=== PATIENT | female | born 1960 | race Caucasian/White ===

== ENCOUNTER 2017-01-01 16:15 | Inpatient (IN) | payer BC ==
[~2017-01-01] VITALS: Ht 157.5 cm; Wt 90.8 kg
[2017-01-01] MEDS ORDERED: ASPIRIN CHEWABLE 81 MG TABLET. PO ONE (17:00)
[2017-01-01] MEDS ORDERED: NITROGLYCERIN SUBLINGUAL 0.4 MG BOTTLE OF 25. SL PRN ×2 (17:00→20:30)
[2017-01-01 17:13] LABS: BASO # 0.1 x10^3/uL (0.0-0.2); BASO % 1 % (0-3); EOS % 1 % (0-3); HEMATOCRIT 41.2 % (36.0-47.0); HEMOGLOBIN 14.3 g/dL (12.0-15.5); LYMPH # 2.1 x10^3/uL (1.0-4.8); LYMPH % 25 % (24-48); MEAN CORPUSCULAR HEMOGLOBIN 30 pg (25-35); MEAN CORPUSCULAR HGB CONC 35 g/dL (31-37); MEAN CORPUSCULAR VOLUME 85 fL (79-100); MONO % 7 % (0-9); NEUT % 65 % (31-73); PLATELET COUNT 259 x10^3/uL (140-400); RED BLOOD COUNT 4.85 x10^6/uL (3.50-5.40); RED CELL DISTRIBUTION WIDTH 13.5 % (11.5-14.5); WHITE BLOOD COUNT 8.4 x10^3/uL (4.0-11.0)
[2017-01-01] MEDS: fentaNYL PF VIAL 100 MCG/2 ML VIAL IV PRN ×2 (17:18→18:22)
[2017-01-01 17:21] LABS: BILIRUBIN,URINE NEGATIVE (NEG); GLUCOSE,URINE NEGATIVE (NEG); NITRITE,URINE NEGATIVE (NEG); PH,URINE 5.5; PROTEIN,URINE NEGATIVE (NEG-TRACE); UROBILINOGEN,URINE 0.2 mg/dL (0.2 mg/dL)
[2017-01-01 17:21] LABS: CREATININE 1.1 mg/dL (0.6-1.0); POTASSIUM 3.3 mmol/L (3.5-5.1)
[2017-01-01 17:27] LABS: ALBUMIN 4.1 g/dL (3.4-5.0); DIRECT BILIRUBIN 0.1 mg/dL (0.0-0.2); TOTAL BILIRUBIN 0.5 mg/dL (0.2-1.0); TOTAL PROTEIN 7.9 g/dL (6.4-8.2)
[2017-01-01 17:28] LABS: BARBITURATES NEG (NEG); BENZODIAZEPINES NEG (NEG); CANNABINOIDS NEG (NEG); COCAINE NEG (NEG); METHADONE NEG (NEG); OPIATES NEG (NEG); PHENCYCLIDINE NEG (NEG)
[2017-01-01 17:31] LABS: RBC,URINE 0 /HPF (0-2)
[2017-01-01 17:32] LABS: BACTERIA,URINE FEW /HPF (0-FEW); SQUAMOUS EPITHELIAL CELL,UR FEW /LPF
--- NOTE | 2017-01-01 18:07 | ED.ADGEN ---
Past Medical History Past Medical History: Hypertension, Other Additional Past Medical Histor: RA Past Surgical History: Knee Replacement, Other Additional Past Surgical Histo: uterine ablation Alcohol Use: Occasionally Drug Use: None Adult General Chief Complaint Chief Complaint: CHEST PAIN HPI HPI Patient is a 56 year old woman, history of hypertension, who presents to the emergency department with complaint of back pain, located in her mid upper back , which she states began this morning. Associated with significant fatigue, which patient states is new for her, denies any injuries, any recent travel or surgery, any swelling extremities, history of DVT or PE. Pain has been intermittent, radiates from her back to her chest, is not reproducible with movement or with palpation. States he has had some nausea but no vomiting, states she also experienced tingling in her right arm which is now resolved. Patient states she is similar episode that occurred several years ago, she states at that time she had an extensive workup without a source being identified, although they saw "gallstones". She denies any nausea or vomiting, no belching, no shortness of breath, no focal weakness, numbness or tingling. Denies any inciting factors or changes in activities or medication. Patient states that her last cardiac evaluation was a catheterization that occurred [address] Powell. Her primary care provider is Dr. Uriarte. Review of Systems Review of Systems Constitutional: Denies fever or chills. [] Eyes: Denies change in visual acuity. [] HENT: Denies nasal congestion or sore throat. [] Respiratory: Denies cough or shortness of breath. [] Cardiovascular: Thoracic back pain radiating to the chest, no edema. GI: Denies abdominal pain, nausea, vomiting, bloody stools or diarrhea. [] : Denies dysuria. [] Musculoskeletal: Thoracic back pain radiating to the chest, no joint pain, no injury. Integument: Denies rash. [] Neurologic: Denies headache, focal weakness or sensory changes. [] Endocrine: Denies polyuria or polydipsia. [] Lymphatic: Denies swollen glands. [] Psychiatric: Denies depression or anxiety. [] Current Medications Current Medications Current Medications Medications (Trade) Dose Ordered Sig/Mary Beth Start Time Stop Time Status Last Admin Dose Admin Aspirin (Children'S Aspirin) 324 mg 1X ONCE 01/01/17 17:00 01/01/17 17:01 UNV 01/01/17 17:17 324 MG Fentanyl Citrate (Fentanyl 2ml Vial) 25 mcg PRN Q15MIN PRN 01/01/17 17:00 01/02/17 16:59 UNV 01/01/17 18:22 25 MCG Iohexol (Omnipaque 300 Mg/ml) 60 ml 1X ONCE 01/01/17 19:15 01/01/17 19:16 UNV 01/01/17 19:32 60 ML Nitroglycerin (Nitrostat) 0.4 mg PRN Q5MIN PRN 01/01/17 17:00 01/02/17 16:59 UNV 01/01/17 17:19 0.4 MG Physical Exam Physical Exam Constitutional: Well developed, well nourished, no acute distress, non-toxic appearance. [] HENT: Normocephalic, atraumatic, bilateral external ears normal, oropharynx moist, no oral exudates, nose normal. [] Eyes: PERRLA, EOMI, conjunctiva normal, no discharge. [] Neck: Normal range of motion, no tenderness, supple, no stridor. [] Cardiovascular:Heart rate regular rhythm, no murmur , S1, S2, no rubs or gallops. [] Lungs & Thorax: Bilateral breath sounds clear to auscultation, no wheezing, rhonchi, rales. No chest wall crepitus or tenderness. [] Abdomen: Bowel sounds normal, soft, no tenderness, no rebound, rigidity, no guarding, negative Urbina sign, no masses, no pulsatile masses. [] Skin: Warm, dry, no erythema, no rash. [] Back: No tenderness, unable to reproduce symptoms with palpation, no bony point tenderness or crepitus,, no CVA tenderness. [] Extremities: No tenderness, no cyanosis, no clubbing, ROM intact, no edema. [] Neurologic: Alert and oriented X 3, normal motor function, normal sensory function, no focal deficits noted. [] Psychologic: Affect normal, judgement normal, mood normal. [] Current Patient Data Vital Signs Vital Signs Date Time Temp Pulse Resp B/P (MAP) Pulse Ox O2 Delivery O2 Flow Rate FiO2 01/01/17 19:37 64 18 162/80 (107) Room Air 98.0 01/01/17 18:37 97 01/01/17 16:36 98.1 98.1 Lab Values Laboratory Tests Test 01/01/17 16:30 01/01/17 17:15 White Blood Count 8.4 x10^3/uL (4.0-11.0) Red Blood Count 4.85 x10^6/uL (3.50-5.40) Hemoglobin 14.3 g/dL (12.0-15.5) Hematocrit 41.2 % (36.0-47.0) Mean Corpuscular Volume 85 fL (79-100) Mean Corpuscular Hemoglobin 30 pg (25-35) Mean Corpuscular Hemoglobin Concent 35 g/dL (31-37) Red Cell Distribution Width 13.5 % (11.5-14.5) Platelet Count 259 x10^3/uL (140-400) Neutrophils (%) (Auto) 65 % (31-73) Lymphocytes (%) (Auto) 25 % (24-48) Monocytes (%) (Auto) 7 % (0-9) Eosinophils (%) (Auto) 1 % (0-3) Basophils (%) (Auto) 1 % (0-3) Neutrophils # (Auto) 5.5 x10^3uL (1.8-7.7) Lymphocytes # (Auto) 2.1 x10^3/uL (1.0-4.8) Monocytes # (Auto) 0.6 x10^3/uL (0.0-1.1) Eosinophils # (Auto) 0.1 x10^3/uL (0.0-0.7) Basophils # (Auto) 0.1 x10^3/uL (0.0-0.2) Sodium Level 140 mmol/L (136-145) Potassium Level 3.3 mmol/L (3.5-5.1) L Chloride Level 102 mmol/L (98-107) Carbon Dioxide Level 27 mmol/L (21-32) Anion Gap 11 (6-14) Blood Urea Nitrogen 14 mg/dL (7-20) Creatinine 1.1 mg/dL (0.6-1.0) H Estimated GFR (Cockcroft-Gault) 51.0 Glucose Level 103 mg/dL (70-99) H Calcium Level 9.0 mg/dL (8.5-10.1) Total Bilirubin 0.5 mg/dL (0.2-1.0) Direct Bilirubin 0.1 mg/dL (0.0-0.2) Aspartate Amino Transferase (AST) 24 U/L (15-37) Alanine Aminotransferase (ALT) 38 U/L (14-59) Alkaline Phosphatase 88 U/L (46-116) Troponin I Quantitative < 0.017 ng/mL (0.000-0.055) ZB-Jms-B-Type Natriuretic Peptide 143 pg/mL (0-124) H Total Protein 7.9 g/dL (6.4-8.2) Albumin 4.1 g/dL (3.4-5.0) Lipase 177 U/L (73-393) Urine Collection Type Unknown Urine Color Yellow Urine Clarity Clear Urine pH 5.5 Urine Specific Standard 1.020 Urine Protein Negative mg/dL (NEG-TRACE) Urine Glucose (UA) Negative mg/dL (NEG) Urine Ketones (Stick) Negative mg/dL (NEG) Urine Blood Negative (NEG) Urine Nitrite Negative (NEG) Urine Bilirubin Negative (NEG) Urine Urobilinogen Dipstick 0.2 mg/dL (0.2 mg/dL) Urine Leukocyte Esterase Moderate (NEG) Urine RBC 0 /HPF (0-2) Urine WBC 11-20 /HPF (0-4) Urine Squamous Epithelial Cells Few /LPF Urine Bacteria Few /HPF (0-FEW) Urine Mucus Mod /LPF Urine Opiates Screen Neg (NEG) Urine Methadone Screen Neg (NEG) Urine Barbiturates Neg (NEG) Urine Phencyclidine Screen Neg (NEG) Urine Amphetamine/Methamphetamine Neg (NEG) Urine Benzodiazepines Screen Neg (NEG) Urine Cocaine Screen Neg (NEG) Urine Cannabinoids Screen Neg (NEG) Urine Ethyl Alcohol Neg (NEG) Laboratory Tests 01/01/17 16:30 Laboratory Tests 01/01/17 16:30 EKG EKG EC: Sinus rhythm, heart rate 70 beats/minute, left axis deviation, QTC of 420, TX 126, QR is a 92, contour abnormality is noted in the inferior anterior septal leads, no ST elevations or depressions, abnormal ECG, does not meet STEMI criteria. As interpreted by me. [] Radiology/Procedures Radiology/Procedures Chest x-ray: One view: Patient with normal cardiopulmonary silhouette, no infiltrates, no effusions, pneumothorax, no soft tissue or bony abnormality is identified. As interpreted by me. [] Impressions: [facility] [address] [place], [place] [id number] IMAGING REPORT Signed PATIENT: HOWIE MERRITT ACCOUNT: [id number] : 1960 LOCATION: ER AGE: 56 SEX: F EXAM STATUS: REG ER ORD. PHYSICIAN: LOUISE MAGALLON DO REASON: Back/CP, SOB PROCEDURE: CT ANGIOGRAPHY CHEST EXAM: CT angiography of the chest with intravenous contrast. HISTORY: Back pain. Dissection. TECHNIQUE: Computed tomographic images of the chest were obtained following the administration of 75 cc Omnipaque 300 intravenous contrast according to angiography protocol. Multiplanar reformatting was performed and 3-dimensional maximum intensity projection images were obtained. *One or more of the following individualized dose reduction techniques were utilized for this examination: 1. Automated exposure control. 2. Adjustment of the mA and/or kV according to patient size. 3. Use of iterative reconstruction technique. COMPARISON: None. FINDINGS: There is no aortic aneurysm or dissection. There is a standard aortic arch branching pattern. There is no hemodynamically significant stenosis within the origins of the aortic arch branch vessels. The heart is normal in size. No pathologically enlarged mediastinal or hilar lymph node is seen. There is a small hiatal hernia. There is no pneumothorax or pleural effusion. There is a granuloma within the left lung apex. There is a 2 mm groundglass nodular opacity within the right midlung along the pleural fissure, possibly an intrafissural lymph node. There is hepatic steatosis. There is cholelithiasis. There is renal cortical lobulation, developmental or due to scarring. There is a 5.8 cm left renal cyst. No suspicious osseous lesion is seen. There are few thoracic endplate Schmorl's nodes. IMPRESSION: 1. No evidence of thoracic aortic dissection or alternative acute thoracic finding. 2. Hepatic steatosis. 3. Small hiatal hernia. 4. 2 mm groundglass opacity within the right middle lung along the pleural fissure, likely benign fissural lymph node. No suspicious nodule is seen. Electronically signed by: Ankita Myers MD (01/01/2017 7:46 PM) [place] [id number] DICTATED and SIGNED BY: ANKITA MYERS MD DATE: 01/01/171942 CC: ANA MARIA URIARTE MD; LOUISE MAGALLON DO ~ Course & Med Decision Making Course & Med Decision Making Pertinent Labs and Imaging studies reviewed. (See chart for details) Patient states she did have similar symptoms about a year ago, that time she was told might be "gallstones". At this time, patient has no abdominal pain or abdominal tenderness, symptoms are located in the mid thoracic region, with radiation to the chest, that is not reproducible. Also associated with significant fatigue. Discussed with patient that I have concerns that this could be atypical presentation of a cardiac manifestation, also potentially dysfunction of the great vessels. Patient is agreeable receiving laboratory studies and imaging in the ED, has also received nitroglycerin and fentanyl in the ED with improvement of her symptoms. She remains uncomfortable. Chest x-ray unremarkable, ECG left axis deviation, and other nonspecific findings, no evidence of ischemic pattern. CT of the chest obtained, with no evidence of dissection, aneurysm, or other concerning findings identified. Patient received a full dose of aspirin in the ED, lipase is normal, initial troponin is negative. I did discuss findings with the patient patient, she is agreeable for admission to the hospital for continued evaluation. I did speak with Dr. Uriarte , the patient's primary care provider, patient was accepted to his service as a full admission to the medical telemetry floor, consultation placed for Dr. Powell of cardiology. Bridge orders entered per discussion. Dragon Disclaimer Dragon Disclaimer This electronic medical record was generated, in whole or in part, using a voice recognition dictation system. Departure Impression: Primary Impression: Back pain Additional Impression: Chest pain Disposition: ADMITTED INPATIENT Admitting Physician: Ana Maria Uriarte Condition: IMPROVED Problem Qualifiers LOUISE MAGALLON DO Jan 01, 2017 18:07
[2017-01-01] MEDS ORDERED: CONTRAST GIVEN MC PRN (19:00)
[2017-01-01] MEDS ORDERED: IOHEXOL 300 MG/ML 75 ML VIAL IV ONE (19:15)
--- NOTE | 2017-01-01 19:50 | RAD ---
EXAM: CT angiography of the chest with intravenous contrast. HISTORY: Back pain. Dissection. TECHNIQUE: Computed tomographic images of the chest were obtained following the administration of 75 cc Omnipaque 300 intravenous contrast according to angiography protocol. Multiplanar reformatting was performed and 3-dimensional maximum intensity projection images were obtained. *One or more of the following individualized dose reduction techniques were utilized for this examination: 1. Automated exposure control. 2. Adjustment of the mA and/or kV according to patient size. 3. Use of iterative reconstruction technique. COMPARISON: None. FINDINGS: There is no aortic aneurysm or dissection. There is a standard aortic arch branching pattern. There is no hemodynamically significant stenosis within the origins of the aortic arch branch vessels. The heart is normal in size. No pathologically enlarged mediastinal or hilar lymph node is seen. There is a small hiatal hernia. There is no pneumothorax or pleural effusion. There is a granuloma within the left lung apex. There is a 2 mm groundglass nodular opacity within the right midlung along the pleural fissure, possibly an intrafissural lymph node. There is hepatic steatosis. There is cholelithiasis. There is renal cortical lobulation, developmental or due to scarring. There is a 5.8 cm left renal cyst. No suspicious osseous lesion is seen. There are few thoracic endplate Schmorl's nodes. IMPRESSION: 1. No evidence of thoracic aortic dissection or alternative acute thoracic finding. 2. Hepatic steatosis. 3. Small hiatal hernia. 4. 2 mm groundglass opacity within the right middle lung along the pleural fissure, likely benign fissural lymph node. No suspicious nodule is seen. Electronically signed by: Ankita Mireles MD (01/01/2017 7:46 PM) [place] [id number]
[2017-01-01] MEDS ORDERED: ACETAMINOPHEN 325 MG TABLET. PO PRN (20:30)
[2017-01-01 20:55] VITALS: BP 204/85
[2017-01-01 21:24] VITALS: BP 189/93
[2017-01-01] MEDS: MORPHINE SULFATE 4 MG/ML DISP.SYRIN. IV PRN (21:31)
[2017-01-01] MEDS: ONDANSETRON PF 4 MG/2 ML VIAL. IV PRN (21:34)
[2017-01-01] MEDS ORDERED: LISI10TA2 PO (21:57)
[2017-01-01] MEDS: LISINOPRIL 10 MG TABLET PO SCH (23:06)
[2017-01-01 23:07] VITALS: BP 124/89
--- NOTE | 2017-01-02 01:37 | ACF ---
Admission Forms Criteria CARDIOLOGY GRG Clinical Indications for Admission to Inpatient Care ( [place]/check or initial the applicable condition/criteria) Hospital admission is needed for appropriate care of the patient because of ANY ONE of the following: [ ] I. Hemodynamic instability as indicated by ALL of the following (1)(2)(3) (4)(5)(6)(7)(8)(9)(10) [ ]a) Vital sign abnormality not readily corrected by appropriate treatment with 12-24 hours for ANY ONE: [ ]i) Hypotension that persists despite appropriate treatment (eg, volume repletion) [ ]ii) Tachycardiathat persists despite appropriate tx ( e.g., analgesia, fluids, sedation as indicated [ ]iii) Orthostatic vital sign changes that persists despite appropriate treatment (eg, volume repletion) [ ]b) Vital sign abnormailty that is severe indicated by ANY ONE of the following: [ ]i) Inadequate perfusion indicated by ANY ONE of the following: [ ] 1) Lactic acidosis (> 2 mmol/L) [ ] 2) New abnormal capillary refill (> 3 seconds) [ ] 3) Reduced urine output [ ] 4) New altered mental status [ ] 5) Myocardial Ischemia [ ] 6) Other metabolic acidosis (arterial pH <7.35 ) not otherwise explained. [ ]ii) Mean arterial pressure[A] less than 60 mm Hg [ ]iii) Mean arterial pressure[A] less than 70 mm Hg after 30 minutes of appropriate treatment (eg, fluid resuscitation) [ ]iv) Sustained heart rate greater than 120 beats per minute in adult or child 6 years or older[B] [ ]v) IV inotropic or vasopressor medication required to maintain adequate blood pressure or perfusion [ ] II. Severe heart failure as indicated by ANY ONE of the following(17)(18) [ ]a) Respiratory distress [ ]b) Hypotension [ ]c) Debilitating anasarca refractory to therapy (eg, tissue breakdown with infection)[C](19) [ ]d) Cardiac arrhythmias of immediate concern [ ]e) Myocardial ischemia [ ] III. Cardiac arrhythmias or findings of immediate concern indicated by ANY ONE of the following (21)(22): [ ] a) Heart rhythms that are inherently dangerous or unstable indicated by ANY ONE of the following (23)(24)(25): [ ] i) Resuscitated ventricular fibrillation or cardiac arrest [ ] ii) Ventricular escape rhythm [ ] iii) Sustained ventricular tachycardia (30 seconds or more of ventricular rhythm at greater than 100 beats per minute) [ ] iv) Nonsustained ventricular tachycardia and ANY ONE of the following: [ ] 1) Suspected cardiac ischemia as cause or consequence of ventricular tachycardia [ ] 2) Acute myocarditis [ ] b) Unstable cardiac conduction defects indicated by ANY ONE of the following(25)(26)(27) [ ] i) Type II second-degree atrioventricular block [ ]ii) Third-degree atrioventricular block [ ]iii) New-onset left bundle branch block with suspected myocardial ischemia [ ]c) Any heart rhythm and ANY ONE of the following (23)(24)(28)(29) (30) [ ] i) Continuous long-term ECG monitoring needed (e.g., initiation of drug requiring monitoring for more than 24 hours) [ ] ii) Patient has automatic implanted cardioverter defibrillator that is repeatedly firing, malfunctioning, or in need of immediate adjustment of settings beyond the scope of ambulatory or observation care [ ]d) Heart rhythms of concern due to ANY ONE of the following: [ ] i) Hypotension [ ] ii) Respiratory distress [ ] iii) Association with other significant symptoms (e.g., bradycardia with syncope or ongoing dizziness, supraventricular tachycardia with chest pain (28)(29)(31) [ ] IV. Monitoring for cardiac contusion beyond the scope of observation care needed [A](32)(33)(34) [ ] V. Surgical or device complication (e.g., valve replacement complication , ICD disfunction or pacemaker dysfunction) (49)(50)(51)(52)(53)(54) [ ] . Inpatient palliative care needed. [F](51)(52) Also use Inpatient Palliative Care Criteria [ ] VII. Nonbacterial thrombotic (marantic) endocarditis(43)(44)(55)(56)(57) [ X] VIII. Cardiology condition, symptom, or finding for which emergency and observation care has failed or are not considered appropriate. [ ] IX. Acute valvular disease requiring inpatient as indicated by ANY ONE of the following (40)(41) [ ]a) Acute valvular regurgitation (42) [ ]b) Noninfectious valvulitis (43)(44) [ ]c) Obstructive valve thrombosis (45)(46) [ ]d) Paravalvular leak(47)(48) [ ]e) Other significant valvular disorder remaining after emergency or observation level of care (as appropriate) [ ]X. Pericardial disease requiring inpatient treatment as indicated by ANY ONE of the following (35)(36)(37)(38) [ ]a) Suspected tamponade [ ]b) Hemopericardium [ ]c) Other significant pericardial disorder remaining after emergency or observation level of care (as appropriate)(39) [ ] XI. Cardiac ischemia beyond scope of emergency and observation care. [ ] XII. Cyanotic heart disease requiring inpatient care as indicated by 1 or more of the following(58)(59)(60): [ ]a) Acute onset of hypoxemia [ ]b) Exacerbation [ ] XIII. Hypertension requiring inpatient treatment as indicated by ANYONE of the following(11)(12)(13)(14): [ ]a) Severe hypertension (SBP greater than 180 mm Hg or DBP greater than 110 mm Hg, or greater than the 95th percentile for age, gender, and height in pediatric patients) that cannot be controlled (eg, to SBP less than 160 mm Hg and DBP less than 100 mm Hg) by emergency department or observation care treatment(15) [ ]b) Acute end organ damage secondary to hypertension (SBP greater than 140 mm Hg or DBP greater than 90 mm Hg) as indicated by ANYONE of the following: [ ] i) Hypertensive encephalopathy (eg, Altered mental status)(16) [ ] ii) Cerebral infarction [ ] iii) Intracranial hemorrhage [ ] iv) Myocardial ischemia or infarction [ ] v) Heart failure (eg, pulmonary edema) [ ] vi) Aortic dissection [ ] vii) Increased creatinine (new) with reduction of more than 50% in estimated glomerular filtration rate from baseline [ ] viii) Papilledema [ ] ix) Retinal hemorrhage [ ] x) Microangiopathic hemolytic anemia [ ] xi) Seizure [ ] xii) Other significant finding secondary to hypertension [ ] XIV. Complications of transplanted heart indicated by ANY ONE of the following(61): [ ]a) Acute graft rejection requiring inpatient management (eg, intravenous imunosuppression)(62)(63) [ ]b) Acute graft heart failure indicated by ANY ONE of the following(64): [ ] i) Hemodynamic instability [ ] ii) Cardiac arrhythmias of immediate concern [ ] iii) Pulmonary edema that is very severe (eg, mechanical ventilation needed, imminent or likely, need for 100% oxygen to keep oxygen saturation above 90%) [ ] iv) Pulmonary edema that is persistent as indicated by ALL of the following: [ ] 1) New need for oxygen therapy to keep oxygen saturation above 90 % (or increased FiO2 need from baseline) [ ] 2) Has not improved sufficiently with emergency department or observation care IV diuretics or other heart failure treatments[E]. [ ] iv) Altered mental status that is severe or persistent [ ] iv) Increased creatinine (new on laboratory test) with reduction of more than 50% in estimated glomerular filtration rate from baseline [ ] iv) Progressively (ongoing) rising creatinine (known from past laboratory test) with reduction of more than 25% in estimated glomerular filtration rate from baseline [ ] iv) Acute renal failure [ ] iv) Acute peripheral ischemia (eg, examination shows pulseless, cool, mottled, or cyanotic extremity) [ ] iv) Pulmonary artery catheter monitoring needed [ ] iv) Other sign or symptom of heart failure requiring inpatient treatment (ie, too severe or not responsive to outpatient and observation care treatment) [ ]c) Infection requiring inpatient management (eg, Hemodynamic instability, need for intravenous antimicrobial treatment)(66)(67)(68)(69)(70) [ ]d) Cardiac allograft vasculopathy requiring inpatient management (eg evidence of cardiacischemia)(71) [ ]e) Other complication of transplanted heart (eg, stroke, severe pulmonary hypertension, severe valvular dysfunction) requiring inpatient management(72) The original [employer] [facility] content created by [employer] has been revised. The portions of the content which have been revised are identified through the use of italic text, and [facility] has neither reviewed nor approved the modified material. All other unmodified content is copyright [facility] [employer]. Please see references footnoted in the original [employer] edition 2014 Admission Criteria Met?: Yes TWIN WU Jan 02, 2017 01:37
[2017-01-02 02:50] VITALS: BP 99/60
[2017-01-02] MEDS: MORPHINE SULFATE 4 MG/ML DISP.SYRIN. IV PRN (02:58)
[2017-01-02 05:11] LABS: BASO # 0.1 x10^3/uL (0.0-0.2); BASO % 1 % (0-3); EOS % 3 % (0-3); HEMOGLOBIN 13.3 g/dL (12.0-15.5); LYMPH # 2.3 x10^3/uL (1.0-4.8); LYMPH % 39 % (24-48); MEAN CORPUSCULAR HEMOGLOBIN 29 pg (25-35); MEAN CORPUSCULAR HGB CONC 33 g/dL (31-37); MEAN CORPUSCULAR VOLUME 88 fL (79-100); MONO % 7 % (0-9); NEUT % 50 % (31-73); PLATELET COUNT 228 x10^3/uL (140-400); RED BLOOD COUNT 4.66 x10^6/uL (3.50-5.40); RED CELL DISTRIBUTION WIDTH 13.6 % (11.5-14.5); WHITE BLOOD COUNT 5.9 x10^3/uL (4.0-11.0)
[2017-01-02 05:35] LABS: CALCIUM 8.7 mg/dL (8.5-10.1); CREATININE 1.1 mg/dL (0.6-1.0); POTASSIUM 3.3 mmol/L (3.5-5.1)
--- NOTE | 2017-01-02 06:27 | EKG ---
[facility] [address] [place] [address] Test Date: 2017-01-01 Test Time: 16:20:36 Pat Name: HOWIE MERRITT Department: Room: Gender: F [employer]: : 1960 Requested By: LOUISE MAGALLON Order Number: [id number] Reading MD: Measurements Intervals [place]evil Rate: 70 P: -24 WA: 126 QRS: -7 QRSD: 92 T: 15 QT: 386 QTc: 420 Interpretive Statements SINUS RHYTHM LEFTWARD AXIS QRS(T) CONTOUR ABNORMALITY CANNOT RULE OUT ANTEROSEPTAL MYOCARDIAL DAMAGE RI6.01 Unconfirmed report No previous ECG available for comparison
[2017-01-02] MEDS: ONDANSETRON PF 4 MG/2 ML VIAL. IV PRN (06:41)
[2017-01-02 06:48] VITALS: BP 117/62
--- NOTE | 2017-01-02 08:11 | RAD ---
Portable chest, 01/01/2017: History: Palpitations Comparison is made to a study from 04/25/2004. The heart size and pulmonary vascularity are normal. No pulmonary infiltrates are seen. There is no evidence of pleural fluid. IMPRESSION: No acute cardiopulmonary abnormality is detected.
[2017-01-02] MEDS ORDERED: KETOROLAC TROMETHAMINE 30 MG/ML INJ. IV PRN (08:15)
--- NOTE | 2017-01-02 08:31 | PDOC ---
Provider Note Provider Note [id number] ANA MARIA URIARTE MD Jan 02, 2017 08:31
[2017-01-02] MEDS: LISINOPRIL 10 MG TABLET PO SCH (08:55)
[2017-01-02] MEDS ORDERED: LISINOPRIL 10 MG TABLET PO SCH (09:00)
--- NOTE | 2017-01-02 09:08 | RAD ---
Recommended ultrasound abdomen 01/02/2017 at 0841 hours Indication: Right upper outer pain Comparison: None available Technique: Sonographic imaging of the abdomen was performed utilizing grayscale and color Doppler. Findings: There is mild increased echogenicity of the hepatic parenchyma compatible with diffuse hepatocellular disease, most commonly hepatic steatosis. The liver measures 18.0 cm in maximal dimension. There is hepatopedal flow within the portal venous system. Gallstones are present. Common bile duct measures 3 mm. There is no gallbladder wall thickening or pericholecystic fluid. The right kidney measures 12.3 x 5.2 x 5.1 cm. There is a cyst exophytic from the inferior pole of the right kidney measuring 6.0 x 5.8 x 6.3 cm. There is no hydronephrosis or suspicious renal mass. No free fluid in the right upper quadrant. Impression: 1. Cholelithiasis without sonographic evidence for acute cholecystitis. 2. Increased echogenicity of the hepatic parenchyma is compatible with diffuse hepatocellular disease, most commonly hepatic steatosis. 3. Simple appearing renal cyst measuring 6.0 cm exophytic from the inferior pole right kidney.
--- NOTE | 2017-01-02 09:26 | HP ---
ADMIT DATE: 01/01/2017 CHIEF COMPLAINT: Upper back pain and nausea. HISTORY OF PRESENT ILLNESS: A 56-year-old white female with no history of coronary artery disease, but she does have a history of controlled hypertension, came in with about 24 hours of nausea, weakness, fatigue and some upper back pain with occasional "sharp" pains in her chest. There has been no exertional component, cough, shortness of breath, dysphagia, melena, hematochezia, heartburn, or new postprandial symptoms. She is known to have gallstones from previous CT scan, but never had a surgical consideration. She had a cardiac catheterization 12 years ago, which was normal and has only controlled hypertension as a medical problem. ER evaluation showed normal troponins and EKGs. She still is having some upper back discomfort and nausea. CT scan of the chest was also normal. PAST MEDICAL HISTORY: No significant surgery and lisinopril is her only medicine. No other serious known medical problems. ALLERGIES: None. SOCIAL HISTORY: Nonsmoker, nondrinker, physically moderately active, employed, single. FAMILY HISTORY: Unremarkable. REVIEW OF SYSTEMS: No other complaints. PHYSICAL EXAMINATION: ENT: All within normal limits. NECK: No masses, nodes or bruits. LUNGS: Clear, without tachypnea. CARDIOVASCULAR: Regular rate, rate is about 50-60. No murmurs heard. ABDOMEN: Mildly tender in the right upper quadrant. No guarding, masses or rebound. EXTREMITIES: Good pedal and radial pulses. No joint or skin lesions or nail bed findings. NEUROLOGIC: Normal. ASSESSMENT: Nonspecific upper back pain and nausea. She has low risk factors for coronary artery disease and she does have known gallstones. Certainly, the symptoms are not typical for any normal diagnosis. PLAN: Gallbladder sonogram, cardiac evaluation for presumed Lexiscan, and continue monitoring. ANAM ARIA URIARTE MD DR: NITZA/anita JOB#: [id number] / [id number]
[2017-01-02 11:16] VITALS: BP 102/52
--- NOTE | 2017-01-02 14:31 | PDOC2 ---
CONSULT Date of Consult Date of Consult DATE: 01/02/17 TIME: 14:27 History of Present Illness Reason for Visit: Yesterday pt began to have both back and chest pain accompanied by nausea, tingling of the face and a BP of 212/125. Pt presented to the hospital where CXR , Sonogram and CT were done. Evaluation of imaging shows signs of hiatal hernia. Current Problem List Problem List Problems Medical Problems: (1) Back pain Status: Acute (2) Chest pain Status: Acute Current Medications Current Medications Current Medications Aspirin (Children'S Aspirin) 324 mg 1X ONCE PO Last administered on 01/01/17 17:17; Start 01/01/17 at 17:00; Stop 01/01/17 at 20:48; Status DC Nitroglycerin (Nitrostat) 0.4 mg PRN Q5MIN PRN SL CP RATING > 1/10 Last administered on 01/01/17 17:19; Start 01/01/17 at 17:00; Stop 01/02/17 at 16:59 Fentanyl Citrate (Fentanyl 2ml Vial) 25 mcg PRN Q15MIN PRN IV PAIN GREATER THAN 3/10 Last administered on 01/01/17 18:22; Start 01/01/17 at 17:00; Stop at 21:00; Status DC Iohexol (Omnipaque 300 Mg/ml) 60 ml 1X ONCE IV Last administered on 01/01/17 19:32; Start 01/01/17 at 19:15; Stop 01/01/17 at 20:48; Status DC Ondansetron HCl (Zofran) 4 mg PRN Q8HRS PRN IV NAUSEA/VOMITING Last administered on 01/02/17 06:41; Start 01/01/17 at 20:30; Stop 01/02/17 at 20:29 Morphine Sulfate 4 mg PRN Q2HR PRN IV PAIN Last administered on 01/02/17 02:58 ; Start 01/01/17 at 20:30; Stop 01/02/17 at 08:29; Status DC Acetaminophen (Tylenol) 650 mg PRN Q4HRS PRN PO FEVER; Start 01/01/17 at 20:30 ; Stop 01/02/17 at 20:29 Nitroglycerin (Nitrostat) 0.4 mg PRN Q5MIN PRN SL CHEST PAIN; Start 01/01/17 at 20:30; Stop 01/02/17 at 20:29 Info (Do NOT chart on this entry -- for MONITORING) 1 each PRN DAILY PRN MC SEE COMMENTS; Start 01/01/17 at 19:00; Stop 01/03/17 at 18:59 Lisinopril (Prinivil) 10 mg DAILY PO ; Start 01/02/17 at 09:00; Stop 01/02/17 at 09:00; Status DC Lisinopril (Prinivil) 10 mg DAILY PO Last administered on 01/02/17t 08:55; Start 01/01/17 at 23:00 Ketorolac Tromethamine (Toradol) 30 mg PRN Q6HRS PRN IV PAIN; Start 01/02/17 at 08:15; Stop 01/07/17 at 08:14 Active Scripts Active Reported Lisinopril 10 Mg Tablet 1 Tab PO DAILY Allergies Allergies: Coded Allergies: No Known Drug Allergies (Unverified , 01/01/17) Physical Exam Physical Exam Gen: pt sitting comfortably in bed; no acute distress or pain. Neck: no JVD Card: Resp: Neuro: pt is awake, alert, and oriented. Heart: Regular rate, Normal S1, Normal S2 Vitals VITALS Vital Signs Date Time Temp Pulse Resp B/P (MAP) Pulse Ox O2 Delivery O2 Flow Rate FiO2 01/02/17 11:16 98.2 54 18 102/52 (69) 97 98.2 01/02/17 08:00 Room Air 01/01/17 19:37 98.0 Labs Labs Laboratory Tests Test 01/01/17 16:30 01/01/17 17:15 01/01/17 22:45 01/02/17 04:37 White Blood Count 8.4 x10^3/uL (4.0-11.0) 5.9 x10^3/uL (4.0-11.0) Red Blood Count 4.85 x10^6/uL (3.50-5.40) 4.66 x10^6/uL (3.50-5.40) Hemoglobin 14.3 g/dL (12.0-15.5) 13.3 g/dL (12.0-15.5) Hematocrit 41.2 % (36.0-47.0) 41.0 % (36.0-47.0) Mean Corpuscular Volume 85 fL (79-100) 88 fL (79-100) Mean Corpuscular Hemoglobin 30 pg (25-35) 29 pg (25-35) Mean Corpuscular Hemoglobin Concent 35 g/dL (31-37) 33 g/dL (31-37) Red Cell Distribution Width 13.5 % (11.5-14.5) 13.6 % (11.5-14.5) Platelet Count 259 x10^3/uL (140-400) 228 x10^3/uL (140-400) Neutrophils (%) (Auto) 65 % (31-73) 50 % (31-73) Lymphocytes (%) (Auto) 25 % (24-48) 39 % (24-48) Monocytes (%) (Auto) 7 % (0-9) 7 % (0-9) Eosinophils (%) (Auto) 1 % (0-3) 3 % (0-3) Basophils (%) (Auto) 1 % (0-3) 1 % (0-3) Neutrophils # (Auto) 5.5 x10^3uL (1.8-7.7) 2.9 x10^3uL (1.8-7.7) Lymphocytes # (Auto) 2.1 x10^3/uL (1.0-4.8) 2.3 x10^3/uL (1.0-4.8) Monocytes # (Auto) 0.6 x10^3/uL (0.0-1.1) 0.4 x10^3/uL (0.0-1.1) Eosinophils # (Auto) 0.1 x10^3/uL (0.0-0.7) 0.2 x10^3/uL (0.0-0.7) Basophils # (Auto) 0.1 x10^3/uL (0.0-0.2) 0.1 x10^3/uL (0.0-0.2) Sodium Level 140 mmol/L (136-145) 141 mmol/L (136-145) Potassium Level 3.3 mmol/L (3.5-5.1) 3.3 mmol/L (3.5-5.1) Chloride Level 102 mmol/L (98-107) 102 mmol/L (98-107) Carbon Dioxide Level 27 mmol/L (21-32) 30 mmol/L (21-32) Anion Gap 11 (6-14) 9 (6-14) Blood Urea Nitrogen 14 mg/dL (7-20) 15 mg/dL (7-20) Creatinine 1.1 mg/dL (0.6-1.0) 1.1 mg/dL (0.6-1.0) Estimated GFR (Cockcroft-Gault) 51.0 51.0 Glucose Level 103 mg/dL (70-99) 124 mg/dL (70-99) Calcium Level 9.0 mg/dL (8.5-10.1) 8.7 mg/dL (8.5-10.1) Total Bilirubin 0.5 mg/dL (0.2-1.0) Direct Bilirubin 0.1 mg/dL (0.0-0.2) Aspartate Amino Transf (AST/SGOT) 24 U/L (15-37) Alanine Aminotransferase (ALT/SGPT) 38 U/L (14-59) Alkaline Phosphatase 88 U/L (46-116) Troponin I Quantitative < 0.017 ng/mL (0.000-0.055) < 0.017 ng/mL (0.000-0.055) < 0.017 ng/mL (0.000-0.055) WA-Bax-D-Type Natriuretic Peptide 143 pg/mL (0-124) Total Protein 7.9 g/dL (6.4-8.2) Albumin 4.1 g/dL (3.4-5.0) Lipase 177 U/L (73-393) Urine Collection Type Unknown Urine Color Yellow Urine Clarity Clear Urine pH 5.5 Urine Specific [place] 1.020 Urine Protein Negative mg/dL (NEG-TRACE) Urine Glucose (UA) Negative mg/dL (NEG) Urine Ketones (Stick) Negative mg/dL (NEG) Urine Blood Negative (NEG) Urine Nitrite Negative (NEG) Urine Bilirubin Negative (NEG) Urine Urobilinogen Dipstick 0.2 mg/dL (0.2 mg/dL) Urine Leukocyte Esterase Moderate (NEG) Urine RBC 0 /HPF (0-2) Urine WBC 11-20 /HPF (0-4) Urine Squamous Epithelial Cells Few /LPF Urine Bacteria Few /HPF (0-FEW) Urine Mucus Mod /LPF Urine Opiates Screen Neg (NEG) Urine Methadone Screen Neg (NEG) Urine Barbiturates Neg (NEG) Urine Phencyclidine Screen Neg (NEG) Urine Amphetamine/Methamphetamine Neg (NEG) Urine Benzodiazepines Screen Neg (NEG) Urine Cocaine Screen Neg (NEG) Urine Cannabinoids Screen Neg (NEG) Urine Ethyl Alcohol Neg (NEG) Thyroid Stimulating Hormone (TSH) 4.074 uIU/mL (0.358-3.74) Laboratory Tests Test 01/01/17 16:30 01/01/17 17:15 01/01/17 22:45 01/02/17 04:37 White Blood Count 8.4 x10^3/uL (4.0-11.0) 5.9 x10^3/uL (4.0-11.0) Red Blood Count 4.85 x10^6/uL (3.50-5.40) 4.66 x10^6/uL (3.50-5.40) Hemoglobin 14.3 g/dL (12.0-15.5) 13.3 g/dL (12.0-15.5) Hematocrit 41.2 % (36.0-47.0) 41.0 % (36.0-47.0) Mean Corpuscular Volume 85 fL (79-100) 88 fL (79-100) Mean Corpuscular Hemoglobin 30 pg (25-35) 29 pg (25-35) Mean Corpuscular Hemoglobin Concent 35 g/dL (31-37) 33 g/dL (31-37) Red Cell Distribution Width 13.5 % (11.5-14.5) 13.6 % (11.5-14.5) Platelet Count 259 x10^3/uL (140-400) 228 x10^3/uL (140-400) Neutrophils (%) (Auto) 65 % (31-73) 50 % (31-73) Lymphocytes (%) (Auto) 25 % (24-48) 39 % (24-48) Monocytes (%) (Auto) 7 % (0-9) 7 % (0-9) Eosinophils (%) (Auto) 1 % (0-3) 3 % (0-3) Basophils (%) (Auto) 1 % (0-3) 1 % (0-3) Neutrophils # (Auto) 5.5 x10^3uL (1.8-7.7) 2.9 x10^3uL (1.8-7.7) Lymphocytes # (Auto) 2.1 x10^3/uL (1.0-4.8) 2.3 x10^3/uL (1.0-4.8) Monocytes # (Auto) 0.6 x10^3/uL (0.0-1.1) 0.4 x10^3/uL (0.0-1.1) Eosinophils # (Auto) 0.1 x10^3/uL (0.0-0.7) 0.2 x10^3/uL (0.0-0.7) Basophils # (Auto) 0.1 x10^3/uL (0.0-0.2) 0.1 x10^3/uL (0.0-0.2) Sodium Level 140 mmol/L (136-145) 141 mmol/L (136-145) Potassium Level 3.3 mmol/L (3.5-5.1) 3.3 mmol/L (3.5-5.1) Chloride Level 102 mmol/L (98-107) 102 mmol/L (98-107) Carbon Dioxide Level 27 mmol/L (21-32) 30 mmol/L (21-32) Anion Gap 11 (6-14) 9 (6-14) Blood Urea Nitrogen 14 mg/dL (7-20) 15 mg/dL (7-20) Creatinine 1.1 mg/dL (0.6-1.0) 1.1 mg/dL (0.6-1.0) Estimated GFR (Cockcroft-Gault) 51.0 51.0 Glucose Level 103 mg/dL (70-99) 124 mg/dL (70-99) Calcium Level 9.0 mg/dL (8.5-10.1) 8.7 mg/dL (8.5-10.1) Total Bilirubin 0.5 mg/dL (0.2-1.0) Direct Bilirubin 0.1 mg/dL (0.0-0.2) Aspartate Amino Transf (AST/SGOT) 24 U/L (15-37) Alanine Aminotransferase (ALT/SGPT) 38 U/L (14-59) Alkaline Phosphatase 88 U/L (46-116) Troponin I Quantitative < 0.017 ng/mL (0.000-0.055) < 0.017 ng/mL (0.000-0.055) < 0.017 ng/mL (0.000-0.055) WE-Ecx-M-Type Natriuretic Peptide 143 pg/mL (0-124) Total Protein 7.9 g/dL (6.4-8.2) Albumin 4.1 g/dL (3.4-5.0) Lipase 177 U/L (73-393) Urine Collection Type Unknown Urine Color Yellow Urine Clarity Clear Urine pH 5.5 Urine Specific [place] 1.020 Urine Protein Negative mg/dL (NEG-TRACE) Urine Glucose (UA) Negative mg/dL (NEG) Urine Ketones (Stick) Negative mg/dL (NEG) Urine Blood Negative (NEG) Urine Nitrite Negative (NEG) Urine Bilirubin Negative (NEG) Urine Urobilinogen Dipstick 0.2 mg/dL (0.2 mg/dL) Urine Leukocyte Esterase Moderate (NEG) Urine RBC 0 /HPF (0-2) Urine WBC 11-20 /HPF (0-4) Urine Squamous Epithelial Cells Few /LPF Urine Bacteria Few /HPF (0-FEW) Urine Mucus Mod /LPF Urine Opiates Screen Neg (NEG) Urine Methadone Screen Neg (NEG) Urine Barbiturates Neg (NEG) Urine Phencyclidine Screen Neg (NEG) Urine Amphetamine/Methamphetamine Neg (NEG) Urine Benzodiazepines Screen Neg (NEG) Urine Cocaine Screen Neg (NEG) Urine Cannabinoids Screen Neg (NEG) Urine Ethyl Alcohol Neg (NEG) Thyroid Stimulating Hormone (TSH) 4.074 uIU/mL (0.358-3.74) Assessment/Plan Assessment/Plan The pt's pain may be secondary to GERD and a hiatal hernia but the BP has been up and down. Will follow the BP. Thank you for asking me to participate in the care of this pt. JESENIA LEVY MD Jan 02, 2017 14:31
[2017-01-02 14:46] VITALS: BP 124/73
[2017-01-02] MEDS ORDERED: MAG HYDROX/ALUMINUM HYD/SIMETH 30 ML ORAL.SUSP PO PRN (18:15)
[2017-01-02] MEDS ORDERED: FAMOTIDINE 20 MG TABLET. PO ONE (19:30)
[2017-01-02 19:45] VITALS: BP 132/75
[2017-01-02 22:49] VITALS: BP 102/59
[2017-01-03 02:36] VITALS: BP 92/50
[2017-01-03 07:14] VITALS: BP 111/62
--- NOTE | 2017-01-03 08:24 | DISCH ---
DISCHARGE INSTRUCTIONS Condition on Discharge Condition on Discharge: Stable Activity After Discharge Activity Instructions for Disc: No restrictions Diet after Discharge Diet after Discharge: No Added Salt Follow-Up Follow up with: as scheduled ANA MAIRA URIARTE MD Jan 03, 2017 08:24
--- NOTE | 2017-01-03 08:27 | PDOC ---
Provider Note Provider Note [id number] ANA MARIA URIARTE MD Jan 03, 2017 08:27
--- NOTE | 2017-01-03 08:57 | PDOC2 ---
CONSULT Date of Consult Date of Consult DATE: 01/03/17 TIME: 08:49 Reason for Consult Reason for Consult: cholelithiasis Referring Physician Referring Physician: Dr Cee Identification/Chief Complaint Chief Complaint abdominal pain Problems: Source Source: Chart review, Patient History of Present Illness Reason for Visit: Reports intermittent(although has been worsening for last 2 weeks) of back pain that radiates to epigastric and RUQ. She does have associated nausea, sometimes it occurs after eating. Does occur in middle of night. At times will take Tums or omeprazole and that will help. Yesterday this pain was severe and she was concerned she was having a heart attack. She does take frequent NSAIDS for her arthritis. She does have some dysphagia at times. Never had a upper scope before Past Medical History Cardiovascular: HTN GI: Other (Hital hernia ) Past Surgical History Past Surgical History: Appendectomy, Total knee replacement Family History Family History: Other (noncontributory to current illness ) Social History No ALCOHOL: occassional Drugs: None Lives: Alone Current Problem List Problem List Problems Medical Problems: (1) Back pain Status: Acute (2) Chest pain Status: Acute Current Medications Current Medications Current Medications Aspirin (Children'S Aspirin) 324 mg 1X ONCE PO Last administered on 01/01/17 17:17; Start 01/01/17 at 17:00; Stop 01/01/17 at 20:48; Status DC Nitroglycerin (Nitrostat) 0.4 mg PRN Q5MIN PRN SL CP RATING > 1/10 Last administered on 01/01/17 17:19; Start 01/01/17 at 17:00; Stop 01/02/17 at 16:59 ; Status DC Fentanyl Citrate (Fentanyl 2ml Vial) 25 mcg PRN Q15MIN PRN IV PAIN GREATER THAN 3/10 Last administered on 01/01/17 18:22; Start 01/01/17 at 17:00; Stop at 21:00; Status DC Iohexol (Omnipaque 300 Mg/ml) 60 ml 1X ONCE IV Last administered on 01/01/17 19:32; Start 01/01/17 at 19:15; Stop 01/01/17 at 20:48; Status DC Ondansetron HCl (Zofran) 4 mg PRN Q8HRS PRN IV NAUSEA/VOMITING Last administered on 01/02/17 06:41; Start 01/01/17 at 20:30; Stop 01/02/17 at 20:29 ; Status DC Morphine Sulfate 4 mg PRN Q2HR PRN IV PAIN Last administered on 01/02/17 02:58 ; Start 01/01/17 at 20:30; Stop 01/02/17 at 08:29; Status DC Acetaminophen (Tylenol) 650 mg PRN Q4HRS PRN PO FEVER; Start 01/01/17 at 20:30 ; Stop 01/02/17 at 20:29; Status DC Nitroglycerin (Nitrostat) 0.4 mg PRN Q5MIN PRN SL CHEST PAIN; Start 01/01/17 at 20:30; Stop 01/02/17 at 20:29; Status DC Info (Do NOT chart on this entry -- for MONITORING) 1 each PRN DAILY PRN MC SEE COMMENTS; Start 01/01/17 at 19:00; Stop 01/03/17 at 18:59 Lisinopril (Prinivil) 10 mg DAILY PO ; Start 01/02/17 at 09:00; Stop 01/02/17 at 09:00; Status DC Lisinopril (Prinivil) 10 mg DAILY PO Last administered on 01/02/17 08:55; Start 01/01/17 at 23:00; Stop 01/03/17 at 08:07; Status DC Ketorolac Tromethamine (Toradol) 30 mg PRN Q6HRS PRN IV PAIN Last administered on 01/02/17 20:00; Start 01/02/17 at 08:15; Stop 01/07/17 at 08:14 Famotidine (Pepcid) 40 mg 1X ONCE PO Last administered on 01/02/17 22:08; Start 01/02/17 at 19:30; Stop 01/02/17 at 19:31; Status DC Famotidine (Pepcid) 40 mg DAILY PO ; Start 01/03/17 at 09:00 Al Hydroxide/Mg Hydroxide (Mylanta Plus Xs) 30 ml PRN Q1HR PRN PO HEARTBURN / GAS Last administered on 01/02/17 20:00; Start 01/02/17 at 18:15 Active Scripts Active Reported Lisinopril 10 Mg Tablet 1 Tab PO DAILY Allergies Allergies: Coded Allergies: No Known Drug Allergies (Unverified , 01/01/17) ROS General: No: Chills, Other (fevers ) PSYCHOLOGICAL ROS: No: Anxiety, Depression Eyes: No Blurry vision, No Double vision HEENT: No: Heacaches, Sore Throat Hematological and Lymphatic: No: Bleeding Problems, Blood Clots Respiratory: No: Cough, Shortness of breath Cardiovascular: yes Chest Pain, No Palpitations Gastrointestinal: Yes Other (see hpi) Genitourinary: No Dysuria, No Hematuria Musculoskeletal: Yes Joint Pain, No Muscle Pain Neurological: No Impaired Coord/balance, No Numbness/Tingling Skin: No Pruritus, No Rash Physical Exam General: Alert, Oriented X3, Cooperative, No acute distress HEENT: PERRLA, Mucous membr. moist/pink Lungs: Clear to auscultation, Normal air movement Heart: Regular rate, Normal S1, Normal S2, No murmurs Abdomen: Soft, Other (moderate TTP to epigastric and RUQ) Extremities: No clubbing, No cyanosis Skin: No rashes, No breakdown Neuro: Normal speech, Sensation intact Psych/Mental Status: Mental status NL, Mood NL MUSCULOSKELETAL: No deformity, No swelling Vitals VITALS Vital Signs Date Time Temp Pulse Resp B/P (MAP) Pulse Ox O2 Delivery O2 Flow Rate FiO2 01/03/17 07:14 98.2 57 18 111/62 (78) 96 Room Air 98.2 Labs Labs Laboratory Tests Test 01/01/17 16:30 01/01/17 17:15 01/01/17 22:45 01/02/17 04:37 White Blood Count 8.4 x10^3/uL (4.0-11.0) 5.9 x10^3/uL (4.0-11.0) Red Blood Count 4.85 x10^6/uL (3.50-5.40) 4.66 x10^6/uL (3.50-5.40) Hemoglobin 14.3 g/dL (12.0-15.5) 13.3 g/dL (12.0-15.5) Hematocrit 41.2 % (36.0-47.0) 41.0 % (36.0-47.0) Mean Corpuscular Volume 85 fL (79-100) 88 fL (79-100) Mean Corpuscular Hemoglobin 30 pg (25-35) 29 pg (25-35) Mean Corpuscular Hemoglobin Concent 35 g/dL (31-37) 33 g/dL (31-37) Red Cell Distribution Width 13.5 % (11.5-14.5) 13.6 % (11.5-14.5) Platelet Count 259 x10^3/uL (140-400) 228 x10^3/uL (140-400) Neutrophils (%) (Auto) 65 % (31-73) 50 % (31-73) Lymphocytes (%) (Auto) 25 % (24-48) 39 % (24-48) Monocytes (%) (Auto) 7 % (0-9) 7 % (0-9) Eosinophils (%) (Auto) 1 % (0-3) 3 % (0-3) Basophils (%) (Auto) 1 % (0-3) 1 % (0-3) Neutrophils # (Auto) 5.5 x10^3uL (1.8-7.7) 2.9 x10^3uL (1.8-7.7) Lymphocytes # (Auto) 2.1 x10^3/uL (1.0-4.8) 2.3 x10^3/uL (1.0-4.8) Monocytes # (Auto) 0.6 x10^3/uL (0.0-1.1) 0.4 x10^3/uL (0.0-1.1) Eosinophils # (Auto) 0.1 x10^3/uL (0.0-0.7) 0.2 x10^3/uL (0.0-0.7) Basophils # (Auto) 0.1 x10^3/uL (0.0-0.2) 0.1 x10^3/uL (0.0-0.2) Sodium Level 140 mmol/L (136-145) 141 mmol/L (136-145) Potassium Level 3.3 mmol/L (3.5-5.1) 3.3 mmol/L (3.5-5.1) Chloride Level 102 mmol/L (98-107) 102 mmol/L (98-107) Carbon Dioxide Level 27 mmol/L (21-32) 30 mmol/L (21-32) Anion Gap 11 (6-14) 9 (6-14) Blood Urea Nitrogen 14 mg/dL (7-20) 15 mg/dL (7-20) Creatinine 1.1 mg/dL (0.6-1.0) 1.1 mg/dL (0.6-1.0) Estimated GFR (Cockcroft-Gault) 51.0 51.0 Glucose Level 103 mg/dL (70-99) 124 mg/dL (70-99) Calcium Level 9.0 mg/dL (8.5-10.1) 8.7 mg/dL (8.5-10.1) Total Bilirubin 0.5 mg/dL (0.2-1.0) Direct Bilirubin 0.1 mg/dL (0.0-0.2) Aspartate Amino Transf (AST/SGOT) 24 U/L (15-37) Alanine Aminotransferase (ALT/SGPT) 38 U/L (14-59) Alkaline Phosphatase 88 U/L (46-116) Troponin I Quantitative < 0.017 ng/mL (0.000-0.055) < 0.017 ng/mL (0.000-0.055) < 0.017 ng/mL (0.000-0.055) GO-Yms-T-Type Natriuretic Peptide 143 pg/mL (0-124) Total Protein 7.9 g/dL (6.4-8.2) Albumin 4.1 g/dL (3.4-5.0) Lipase 177 U/L (73-393) Urine Collection Type Unknown Urine Color Yellow Urine Clarity Clear Urine pH 5.5 Urine Specific [place] 1.020 Urine Protein Negative mg/dL (NEG-TRACE) Urine Glucose (UA) Negative mg/dL (NEG) Urine Ketones (Stick) Negative mg/dL (NEG) Urine Blood Negative (NEG) Urine Nitrite Negative (NEG) Urine Bilirubin Negative (NEG) Urine Urobilinogen Dipstick 0.2 mg/dL (0.2 mg/dL) Urine Leukocyte Esterase Moderate (NEG) Urine RBC 0 /HPF (0-2) Urine WBC 11-20 /HPF (0-4) Urine Squamous Epithelial Cells Few /LPF Urine Bacteria Few /HPF (0-FEW) Urine Mucus Mod /LPF Urine Opiates Screen Neg (NEG) Urine Methadone Screen Neg (NEG) Urine Barbiturates Neg (NEG) Urine Phencyclidine Screen Neg (NEG) Urine Amphetamine/Methamphetamine Neg (NEG) Urine Benzodiazepines Screen Neg (NEG) Urine Cocaine Screen Neg (NEG) Urine Cannabinoids Screen Neg (NEG) Urine Ethyl Alcohol Neg (NEG) Thyroid Stimulating Hormone (TSH) 4.074 uIU/mL (0.358-3.74) Assessment/Plan Assessment/Plan cholelithiasis, without findings of cholecystitis upper back pain with radiation to abdomen Small Hiatal hernia hepatic steatosis obesity BMI 36.6 GERD, cholelithiasis, gastritis could be contributing to pain--Dr Cee started pepcid--will review with Dr Valadez If discharges home and continued episodes despite Pepcid, may need to consider lap GREG Roman [employer] Jan 03, 2017 08:56
[2017-01-03] MEDS ORDERED: FAMOTIDINE 20 MG TABLET. PO SCH (09:00)
--- NOTE | 2017-01-03 09:05 | DS ---
DATE OF DISCHARGE: 01/03/2017 DATE OF ADMISSION: 01/01/2017 DATE OF DISCHARGE: 01/03/2017 HOSPITAL SUMMARY: The patient came in with ____ upper back and may be some mild chest discomfort. She has been having episodic heartburn and also some weekly episodes of dysphagia and ____ as well without vomiting, melena, or hematochezia. CBC and chemistry profile were unremarkable. Troponin negative x 2 and TSH normal at 4.07. Gallbladder sonogram showed stone ____ inflammation. The chest CTA was unremarkable. EKGs were within normal limits as well. She was seen by Dr. Powell and the surgeons as well, but because of the heartburn and esophageal symptoms, Pepcid was started and she is comfortable to be followed as an outpatient. FINAL DIAGNOSES: 1. Chest and back pain, likely secondary to gastroesophageal reflux disease with esophagitis. 2. Gallstones, asymptomatic. OPERATIONS, PROCEDURES, COMPLICATIONS: None. CONSULTATIONS: Dr. Powell, Dr. Valadez. DISPOSITION: We gave her Pepcid 40 mg daily, will see her in 2 weeks to see how she responds. Failure to respond would warrant use of a PPI and EGD as well, but she has low risk for esophageal malignancy given lack of tobacco use and chronic alcohol abuse. Regular diet, limited sodium intake, good fluid intake. PROGNOSIS: Good. ANA MARIA URIARTE MD DR: NITZA/anita JOB#: [id number] / [id number]
== END 2017-01-03 09:58 | disposition home or self-care (01) | DRG 392 ==
LOC: ER 16:15 → 6 SOUTH 20:40
PROVIDERS: ADMIT Family Medicine; ATTEND Family Medicine
DX: K21.0 Gastro-esophageal reflux disease with esophagitis (principal); R13.10 Dysphagia, unspecified; K76.0 Fatty (change of) liver, not elsewhere classified; I10 Essential (primary) hypertension; K80.20 Calculus of gallbladder without cholecystitis without obstruction; M19.90 Unspecified osteoarthritis, unspecified site; K44.9 Diaphragmatic hernia without obstruction or gangrene; E66.9 Obesity, unspecified; K29.70 Gastritis, unspecified, without bleeding; Z96.659 Presence of unspecified artificial knee joint; Z79.899 Other long term (current) drug therapy; Z90.49 Acquired absence of other specified parts of digestive tract; Z68.36 Body mass index [BMI] 36.0-36.9, adult
CPT/HCPCS: 36415; 71010; 71275; 76705; 80048; 80076; 80307; 81001; 83690; 83880; 84443; 84484; 85025; 87086; 93005; 96374; 96376; J1885; J2270; J2405; J3010; Q9967; 99285-25; G0479

== ENCOUNTER → 2017-01-11 | Outpatient (CLI) | payer BC ==
[2017-01-03 07:14] VITALS: BP 111/62
[~2017-01-11] MED LIST: IOHEXOL 240 MG/ML 50ML VIAL. PO ONE; IOHEXOL 300 MG/ML 75 ML VIAL IV ONE; LISI10TA2 PO
--- NOTE | 2017-01-11 11:16 | RAD ---
CT of the abdomen and pelvis with contrast, 01/11/2017: History: Left-sided pain Multidetector CT imaging was performed following oral and IV administration of contrast. The liver is of lower than normal density compatible with fatty change. No hepatic mass or bile duct dilatation is evident. There are dense gallstones in the posterior aspect of the gallbladder. No gallbladder wall thickening or pericholecystic edema is evident. The pancreas is unremarkable. The spleen is of normal size. There is mild bilateral renal cortical scarring. There is a 6 cm cyst present anteriorly in the right kidney. A couple of other tiny tiny subcentimeter lesions in the kidneys are too small to definitively characterize but are probably cysts. There is mild aortic calcific plaquing without evidence of aneurysm. No abdominal or pelvic adenopathy is seen. There are scattered colonic diverticula. There is streaky infiltrate increased density in the paracolic fat at the junction of the descending colon and sigmoid colon compatible with inflammation. There is mild underlying mural thickening at this level. The appearance suggests acute diverticulitis. No discrete paracolic fluid collection is seen to suggest abscess. No free air or significant free fluid is evident in the abdomen or pelvis. The bowel loops are not dilated. There appears to be a small hiatal hernia. There are moderate degenerative changes involving the facet joints in the lower lumbar spine with a slight associated spondylolisthesis at L4-5. IMPRESSION: 1. Diverticulosis with mild paracolic inflammation at the junction of the descending colon and sigmoid colon compatible with acute diverticulitis. 2. Cholelithiasis. 3. Hepatic steatosis. 4. Renal cysts. 5. Small hiatal hernia. PQRS Compliance Statement: One or more of the following individualized dose reduction techniques were utilized for this examination: 1. Automated exposure control 2. Adjustment of the mA and/or kV according to patient size 3. Use of iterative reconstruction technique
== END | disposition home or self-care (01) ==
LOC: CT 08:42
PROVIDERS: ATTEND Surgery
DX: N28.1 Cyst of kidney, acquired (principal); K44.9 Diaphragmatic hernia without obstruction or gangrene; K76.0 Fatty (change of) liver, not elsewhere classified; K80.80 Other cholelithiasis without obstruction; K57.90 Diverticulosis of intestine, part unspecified, without perforation or abscess without bleeding
CPT/HCPCS: 74177; Q9966; Q9967

== ENCOUNTER → 2017-04-25 | Outpatient (CLI) | payer BC ==
[~2017-04-25] MED LIST changes: -IOHEXOL 240 MG/ML 50ML VIAL. PO ONE; -IOHEXOL 300 MG/ML 75 ML VIAL IV ONE
--- NOTE | 2017-04-25 16:27 | KCIC ---
Left foot, 3 views, 04/25/2017: HISTORY: Foot pain, gout No fracture or dislocation is identified. There are mild degenerative changes at the tarsal-metatarsal articulations. A well-defined sclerotic focus in the distal fourth metatarsal is probably a bone island. No gouty tophus is evident. There is mild subcutaneous edema. IMPRESSION: 1. Mild degenerative changes. 2. No acute bony abnormality is detected. Electronically signed by: Dima Grace MD (04/25/2017 4:23 PM) [id number]
== END | disposition home or self-care (01) ==
LOC: KCIC 15:53
PROVIDERS: ATTEND Family Medicine
DX: M79.672 Pain in left foot (principal); M10.9 Gout, unspecified
CPT/HCPCS: 73630

== ENCOUNTER → 2017-05-03 | Outpatient (CLI) | payer BC ==
--- NOTE | 2017-05-03 16:51 | KCIC ---
MR of the left foot HISTORY: Left foot pain at the ball of the foot, primarily under the first toe, since April 13. TECHNIQUE: Routine multiplanar sequences are obtained. FINDINGS: Moderate motion degradation Primary osteoarthritis identified at the tarsometatarsal joints with subchondral cysts. Lisfranc ligament is intact. No significant tarsometatarsal joint malalignment. Tendons are intact. No significant tendon sheath fluid. There is no bone lesion. No acute fracture. No acute bone marrow edema. No significant joint effusion. There is a flat soft tissue fluid collection medially superficial to the hallux sesamoids, measuring 15 mm wide by 3 mm deep by 12 mm anterior to posterior. IMPRESSION: 1. Primary osteoarthritis, particularly at the tarsometatarsal joints. 2. Small soft tissue fluid collection plantar to the hallux sesamoids. This is compatible with adventitial bursitis. Small abscess could be considered if the patient is clinically infected or there is nearby puncture wound or ulcer. Electronically signed by: Umang Roa MD (05/03/2017 4:47 PM) [id number]
== END | disposition home or self-care (01) ==
LOC: KCIC MRI 15:20
PROVIDERS: ATTEND Family Medicine
DX: M19.072 Primary osteoarthritis, left ankle and foot (principal); M71.572 Other bursitis, not elsewhere classified, left ankle and foot
CPT/HCPCS: 73718

== ENCOUNTER → 2017-10-23 | Outpatient (CLI) | payer BC | END | disposition home or self-care (01) | LOC: KCIC 13:51 | DX: M79.672 Pain in left foot (principal); M79.671 Pain in right foot; M79.642 Pain in left hand; M79.641 Pain in right hand; M25.571 Pain in right ankle and joints of right foot | CPT/HCPCS: 73130; 73610; 73630 ==

== ENCOUNTER → 2020-02-07 | Outpatient (CLI) | payer BC ==
--- NOTE | 2020-02-07 13:01 | KCIC ---
EXAM: Bilateral digital screening mammogram with tomosynthesis. HISTORY: 59-year-old female presents for screening mammography. TECHNIQUE: Full-field digital craniocaudal and mediolateral oblique 2D and 3D tomosynthesis images of both breasts are obtained for evaluation. Computer aided detection with [employer] software version 9.3 was applied. COMPARISON: 12/05/2014 BREAST PARENCHYMAL DENSITY: Level C - Heterogeneously dense. FINDINGS: There is no new suspicious mass, microcalcification or region of architectural distortion. There are stable areas of asymmetry and nodularity within both breasts, allowing for differences in technique. There is a biopsy clip within the right breast. IMPRESSION: BI-RADS Category 2: Benign finding(s). RECOMMENDATION: Annual mammography is recommended. If your mammogram demonstrates that you have dense breast tissue, which could hide abnormalities, and if you have other risk factors for breast cancer that have been identified, you might benefit from supplemental screening tests that may be suggested by your ordering physician. Dense breast tissue, in and of itself, is a relatively common condition. This information is not provided to cause undue concern, but rather to raise your awareness and to promote discussion with your physician regarding the presence of other risk factors, in addition to dense breast tissue. A report of your mammography results will be sent to you and your physician. You should contact your physician if you have any questions or concerns regarding this report. Mammography is a sensitive method for finding small breast cancers, but it does not detect them all and is not a substitute for careful clinical examination. A negative mammogram does not negate a clinically suspicious finding and should not result in delay in biopsying a clinically suspicious abnormality. PQRS compliance statement - Patient information was entered into a reminder system with a target due date for the next mammogram. "Our facility is accredited by the [employer] Mammography [employer]." Electronically signed by: Ankita Mireles MD (02/07/2020 12:58 PM) [email or web address]
== END | disposition home or self-care (01) ==
LOC: KCIC MAMMO 07:49
PROVIDERS: ATTEND Family Medicine
DX: Z12.31 Encounter for screening mammogram for malignant neoplasm of breast (principal); N64.89 Other specified disorders of breast
CPT/HCPCS: 77063; 77067